=== PATIENT | female | born 1975 | race Caucasian/White ===

== ENCOUNTER 2021-01-24 11:47 | Outpatient (CLI) | payer OTHER, SELFPAY ==
[2021-01-24 12:41] LABS: Hematocrit 47.1 % (37.0-47.0); Mean Corpuscular Hemoglobin 33.5 pg (26-34); Mean Corpuscular Volume 98.7 fl (80-100); Mean Platelet Volume 10.4 fl (7.4-10.4); Platelet Count Result 203 k/mm3 (150-375); Red Blood Count 4.77 M/mm3 (4.2-5.4); White Blood Count 5.3 K/mm3 (4.5-10.0)
[2021-01-24 13:00] LABS: Alanine Aminotransferase 21 U/L (4-35); Albumin Level 4.4 g/dL (3.5-5.1); Alkaline Phosphatase 71 U/L (38-126); Anion Gap 5 mmol/L (8-16); Aspartate Amino Transferase 52 U/L (14-36); Bilirubin,Total 0.4 mg/dL (0.2-1.3); Blood Urea Nitrogen 6 mg/dL (7-17); CRP 1.4 mg/dL (<1.0); Calcium 9.3 mg/dL (8.4-10.2); Carbon Dioxide 27 mmol/L (22-30); Chloride 106 mmol/L (98-107); Estimated Glomerular Filt Rate > 60; Glucose 100 mg/dL (65-105); Potassium 3.6 mmol/L (3.4-5.0); Sodium 138 mmol/L (137-145)
[2021-01-24 13:36] LABS: Erythrocyte Sedimentation Rate 8 mm/hr (0-20)
== END 2021-01-24 11:48 | disposition home or self-care (01) ==
LOC: ANHLAB 11:49
PROVIDERS: PCP Family Medicine; Visit Provider Nurse Practitioner Family
DX: R19.7 Diarrhea, unspecified (principal)
CPT/HCPCS: 36415; 80053; 84443; 85027; 85652; 86140

== ENCOUNTER 2021-03-06 08:28 | Outpatient (CLI) | payer OTHER, SELFPAY ==
--- NOTE | ~2021-03-06 | MM_ITS ---
EXAMINATION: MM screening zak BI w ese HISTORY: Screening TECHNIQUE: Craniocaudal and mediolateral oblique 3-D tomosynthesis images were obtained and synthetic 2-D images were generated. CAD analysis was submitted and interpreted. COMPARISON: 02/06/2012 BREAST PARENCHYMAL COMPOSITION: The breasts are extremely dense, which lowers the sensitivity of mamm ography FINDINGS: There is no evidence of suspicious mass, calcification, or architectural distortion to sugg est malignancy in either breast. There has been no suspicious interval change. IMPRESSION: 1. No mammographic evidence of malignancy. 2. Recommend routine screening mammography in one year. BI-RADS Category 1: Negative Reviewed, dictated and finalized at location A.
== END 2021-03-06 08:29 | disposition home or self-care (01) ==
LOC: ANHIMG 08:30
PROVIDERS: PCP Family Medicine; Visit Provider Student in an Organized Health Care Education/Training Program
DX: Z12.31 Encounter for screening mammogram for malignant neoplasm of breast (principal)
CPT/HCPCS: 77063; 77067

== ENCOUNTER 2021-09-02 16:49 | Emergency (ER) | payer OTHER, SELFPAY ==
[2021-09-02 16:57] VITALS: BP 150/92; PULSE 110; RESP 18; TEMP 36.5; O2SAT 100
--- NOTE | 2021-09-02 18:54 | ED.URI ---
HPI - URI/Sore Throat General Chief Complaint: Upper Respiratory Infection Stated Complaint: Sinus,Sore Throat Time Seen by Provider: 09/02/21 18:42 Source: patient and RN notes reviewed Mode of arrival: ambulatory Limitations: no limitations History of Present Illness HPI Narrative: Patient presents today complaining of nasal congestion x2 days. Reports she had a sore throat yesterday that has since resolved. Denies fever or any additional symptoms. She has been taking Sudafed PE with some mild relief. Denies any history of chronic sinusitis or sinus surgeries. She has been vaccinated against COVID-19. MD elicited complaint: nasal congestion and sinus pain Related Data Home Medications Medication Instructions Recorded Confirmed atorvastatin 09/02/21 losartan-hydrochlorothiazide tablet 09/02/21 Allergies Allergy/AdvReac Type Severity Reaction Status Date / Time No Known Allergies Allergy Unknown Verified 01/24/21 11:19 Review of Systems Review of Systems: CONSTITUTIONAL: Denies body aches, fever, chills, or sweats. EYES: Denies visual changes, redness, or discharge. ENT: Denies sore throat, or otalgia.+ Congestion, sinus pressure, rhinorrhea CARDIOVASCULAR: Denies chest pain, palpitations, or edema. RESPIRATORY: Denies cough or dyspnea. GASTROINTESTINAL: Denies abdominal pain, nausea, vomiting, or diarrhea. GENITOURINARY: Denies dysuria or hematuria. SKIN: Denies rash, itching, or wounds. MUSCULOSKELETAL: Denies back pain, joint pain, or myalgia. NEUROLOGIC: Denies headache, numbness, tingling, or weakness. PSYCH: Denies depression or anxiety. [facility] Past Medical History Medical History Brain aneurysm History of miscarriage Twins History of stroke History of vaginal delivery Lung collapse History x 3 Surgical History Surgical History History of appendectomy 1998 History of right salpingo-oophorectomy Family History Family History Father Lung cancer Mother Heart disease Social History Social History Smoking status: Current every day smoker Alcohol intake: current Substance use: never Gender identity (if verbalized by the patient): Female Comments At time of signature, I have reviewed and agree with nursing past medical, surgical, social and family history unless otherwise noted. Please see nursing chart for further information. There is no relevant family history pertinent to the presenting complaint Exam Narrative: GENERAL: Well-appearing, well-nourished, and in no acute distress. HEAD: Normocephalic, atraumatic. EYES: EOMI. No redness or drainage. Conjunctivae normal. ENT: Mucous membranes pink and moist. Nares congested. Bilateral swollen nasal turbinates with clear drainage no rhinorrhea. TMs normal bilaterally. Throat normal with small ulceration at the right palatine arch. Uvula midline. NECK: Normal AROM. Supple. No lymphadenopathy. CHEST: No respiratory distress. Clear to auscultation. HEART: Regular rate and rhythm. No murmur appreciated. Normal peripheral pulses. EXTREMITIES: Normal range of motion. No edema. SKIN: Warm, dry, no rash. Capillary refill normal. Normal skin turgor. NEURO: No focal deficits. Alert and oriented x3. Gait steady. PSYCH: Normal affect. No signs of depression or anxiety. Course Vital Signs Vital signs: Vital Signs Temperature 97.7 F 09/02/21 16:57 Pulse Rate 110 H 09/02/21 16:57 Respiratory Rate 18 09/02/21 16:57 Blood Pressure 150/92 H 09/02/21 16:57 Pulse Oximetry 100 09/02/21 16:57 Temperature 97.7 F 09/02/21 16:57 Pulse Rate 110 H 09/02/21 16:57 Respiratory Rate 18 09/02/21 16:57 Blood Pressure 150/92 H 09/02/21 16:57 Pulse Oximetry 100 09/02/21 16:5
== END 2021-09-02 19:03 | disposition home or self-care (01) ==
PROVIDERS: Emergency Provider Nurse Practitioner
DX: J32.9 Chronic sinusitis, unspecified (principal); Z86.73 Personal history of transient ischemic attack (TIA), and cerebral infarction without residual deficits; F17.200 Nicotine dependence, unspecified, uncomplicated
CPT/HCPCS: 99213; G0463

== ENCOUNTER 2021-09-18 08:44 | Outpatient (CLI) | payer OTHER, SELFPAY ==
--- NOTE | ~2021-09-18 | XR_ITS ---
EXAMINATION: XR chest 2V DATE: 09/18/2021 09:04 INDICATION: Viral upper respiratory infection. TECHNIQUE: Frontal and lateral views of the chest were obtained. COMPARISON: Chest 2 views 07/31/2009 FINDINGS: There is chronic scarring at the lung apices. No pleural effusion or pneumothorax. The hear t size is normal. IMPRESSION: 1. Chronic scarring at the lung apices. Reviewed, dictated and finalized at location A. WORKER
== END 2021-09-18 08:45 | disposition home or self-care (01) ==
DX: J06.9 Acute upper respiratory infection, unspecified (principal); R91.8 Other nonspecific abnormal finding of lung field
CPT/HCPCS: 36415; 71046; 86413

== ENCOUNTER 2021-09-18 12:58 | Outpatient (CLI) | payer OTHER, SELFPAY | END 2021-09-18 12:59 | disposition home or self-care (01) | LOC: ANHLAB 13:10 | DX: R05.3 Chronic cough (principal); Z20.822 Contact with and (suspected) exposure to COVID-19 | CPT/HCPCS: 36415; 86413 ==

== ENCOUNTER 2021-10-21 12:40 | Outpatient (CLI) | payer OTHER, SELFPAY ==
--- NOTE | 2021-10-21 15:54 | WPDPFTINT ---
PFT Procedure Performed PFT Procedure Performed Plethysmography (Lung Vol) Diffusing Cap (DLCO) Flow Vol Loop Spirometry w/o Bronchodil PFT Interpretation This is a pulmonary function test with spirometry, plethysmography and diffusing capacity. The test was performed and results interpreted in accordance with the 2019 and 2005 ATS/ERS Task Force guidelines respectively using the Global Lung Function Initiative-2012 reference equations. Patient demonstrated good effort and cooperation. Reproducibility criteria were met. The quality of the spirometry maneuver was Grade A. Findings: Spirometry: there is decreased maximal expiratory airflow at all lung volumes with concave expiratory flow tracing. The per FVC is 3.43 L, 83% predicted. The FEV1 is 2.01 L, 61% predicted. The FEV1: FVC ratio is 59%. Plethysmography: The total lung capacity is 6.58 L, 116% predicted. The functional residual capacity is 4.47 L, 140% predicted. The residual volume is 3.00, 158% predicted. Diffusing capacity: The absolute diffusion capacity is 18.4, 74% predicted. The diffusing capacity corrected for alveolar volume is 3.59, 80% predicted. Impression: There is a moderate obstructive abnormality. The increase in residual volume is consistent with air trapping from an obstructive abnormality. Hyperinflation is present is demonstrated by the increase in functional residual capacity and is consistent with an obstructive abnormality. The diffusing capacity is normal. There are no prior studies for comparison
== END 2021-10-21 12:41 | disposition home or self-care (01) ==
LOC: ANHPFT 12:42
DX: R05.3 Chronic cough (principal); R94.2 Abnormal results of pulmonary function studies
CPT/HCPCS: 94375; 94726; 94729

== ENCOUNTER 2021-12-18 07:08 | Outpatient (CLI) | payer OTHER, SELFPAY ==
--- NOTE | ~2021-12-18 | CT_ITS ---
EXAMINATION:CT chest high resolution wo sd DATE: 12/18/2021 07:28 INDICATION: Interstitial lung disease. Cough. TECHNIQUE: Computed tomography (CT) of the chest was performed without intravenous contrast. Automate d exposure control and iterative reconstruction technique were employed. The dose-length product (DLP ) was 143.28 mGy-cm. COMPARISON: Chest 2 views 09/18/2021 FINDINGS: There is mild emphysema. There is symmetric scarring at the lung apices. Calcified right shaila ng nodules and calcified right hilar and mediastinal lymph nodes are consistent with old granulomatou s disease. There is a 3 mm nodule in left lower lobe, likely benign. There are calcified pleural plaq ues in left hemithorax. There is a staple line in left lung upper lobe. No pleural effusion. The hear t size is normal. No pericardial effusion. There is mild thoracic spondylosis. IMPRESSION: 1. Mild emphysema. 2. Scarring at the lung apices. Reviewed, dictated and finalized at location A.
== END 2021-12-18 07:09 | disposition home or self-care (01) ==
LOC: ANHIMG 07:13
PROVIDERS: PCP Physician Assistant; Visit Provider Physician Assistant
DX: J84.9 Interstitial pulmonary disease, unspecified (principal); J43.9 Emphysema, unspecified; R91.8 Other nonspecific abnormal finding of lung field
CPT/HCPCS: 71250

== ENCOUNTER 2022-02-12 09:49 | Outpatient (CLI) | payer OTHER, SELFPAY ==
--- NOTE | ~2022-02-12 | XR_ITS ---
EXAMINATION: XR foot RT min 3V DATE: 02/12/2022 10:10 INDICATION: Right foot pain TECHNIQUE: Dorsoplantar, lateral, and 2 oblique views of the right foot were obtained. COMPARISON: None. FINDINGS: Bone alignment is normal. There is no fracture. There is mild osteoarthritis of the first m etatarsophalangeal joint. The soft tissues are normal. IMPRESSION: 1. No acute osseous abnormality. Reviewed, dictated and finalized at location A.
== END 2022-02-12 09:50 | disposition home or self-care (01) ==
PROVIDERS: PCP Physician Assistant; Visit Provider Physician Assistant
DX: M79.671 Pain in right foot (principal)
CPT/HCPCS: 73630

== ENCOUNTER 2022-03-07 09:08 | Outpatient (CLI) | payer OTHER, SELFPAY ==
--- NOTE | ~2022-03-07 | MM_ITS ---
EXAMINATION: MM screening zak BI w ese HISTORY: Screening mammogram TECHNIQUE: Craniocaudal and mediolateral oblique 3-D tomosynthesis images were obtained and synthetic 2-D images were generated. Bilateral rotated lateral CC views. CAD analysis was submitted and interp reted. COMPARISON: 03/06/2021 bilateral screening mammogram 02/06/2012 bilateral diagnostic mammography and right breast ultrasound examination BREAST PARENCHYMAL COMPOSITION: The breasts are extremely dense, which lowers the sensitivity of mamm ography. FINDINGS: Minimal benign calcification. There is no evidence of suspicious mass, calcification, or ar chitectural distortion to suggest malignancy in either breast. There has been no suspicious interval change. IMPRESSION: 1. No mammographic evidence of malignancy. 2. Recommend routine screening mammography in one year. BI-RADS Category 2: Benign finding(s). Reviewed, dictated and finalized at location A.
== END 2022-03-07 09:09 | disposition home or self-care (01) ==
LOC: ANHIMG 09:08
PROVIDERS: PCP Physician Assistant; Visit Provider Student in an Organized Health Care Education/Training Program
DX: Z12.31 Encounter for screening mammogram for malignant neoplasm of breast (principal)
CPT/HCPCS: 77063; 77067

== ENCOUNTER 2022-03-16 11:30 | Emergency (ER) | payer OTHER, SELFPAY ==
--- NOTE | ~2022-03-16 | XR_ITS ---
XR hand RT min 3V 03/16/2022 12:02 Indication: Status post fall. Right hand pain and swelling Procedure: 3 views right hand Comparison: No prior studies for comparison. Findings: There is an extra-articular fracture proximal aspect of the fifth proximal phalanx without significant displacement or angulation. There is a possible nondisplaced fracture base of the metacar pals seen on lateral view only, possibly third metacarpal. Mild soft tissue swelling dorsally. No for eign bodies. Impression: 1: Nondisplaced extra-articular fracture proximal aspect of the right fifth proximal phalanx. 2: Possible nondisplaced fracture base of the metacarpals seen on lateral view only, possibly third metacarpal fracture. Reviewed, dictated and finalized at location A. Impression: 1: Nondisplaced extra-articular fracture proximal aspect of the right fifth pro ximal phalanx. 2: Possible nondisplaced fracture base of the metacarpals seen on lateral view only, possibly third metacarpal fracture.
[2022-03-16 11:33] VITALS: BP 161/93; PULSE 88; RESP 16; TEMP 36.2; O2SAT 100
[2022-03-16] MEDS: HYDROcodone/acetaminophen (*CRX) 5-325 MG TABLET 1 TAB PO (12:22)
[2022-03-16 13:18] VITALS: BP 181/105; PULSE 78; RESP 18; O2SAT 100
--- NOTE | 2022-03-16 15:24 | ED.UPPEXIN ---
HPI - Extremity Injury (Upper) General Chief Complaint: Extremity Injury, Upper Stated Complaint: Right hand Injury Time Seen by Provider: 03/16/22 11:46 History of Present Illness HPI narrative: Patient is a 46-year-old right-handed female here for evaluation of right hand pain after a fall yesterday. Patient states that she was walking when she accidentally tripped and fell onto an outstretched right hand. She denies head injury or loss of consciousness in the fall. Since then she has developed right hand pain and swelling. She has been taking ibuprofen without much relief. Patient has been able to move her fingers and denies any numbness or tingling in her digits. No further injury sustained in the incident, no break in skin integrity. Related Data Home Medications Medication Instructions Recorded Confirmed atorvastatin 20 mg tablet 09/02/21 01/07/22 losartan 50 mg-hydrochlorothiazide tablet 09/02/21 01/07/22 12.5 mg tablet Allergies Allergy/AdvReac Type Severity Reaction Status Date / Time No Known Allergies Allergy Unknown Verified 03/16/22 11:40 Review of Systems Review of Systems: Gen.: Denies fevers or chills Eyes: Denies eye pain or visual change ENT: Denies congestion Respiratory: Denies shortness of breath or cough CV: Denies chest pain or palpitations GI: Denies abdominal pain nausea, emesis or diarrhea denies burning, urgency, frequency or hematuria Musculoskeletal: Reports right hand pain Neuro: Denies numbness, tingling, weakness or focal weakness Skin: Denies rash Except as documented, all other systems reviewed and negative [facility] Past Medical History Medical History Brain aneurysm History of miscarriage Twins History of stroke History of vaginal delivery Lung collapse History x 3 Surgical History Surgical History History of appendectomy 1998 History of right salpingo-oophorectomy Family History Family History Father Lung cancer Mother Heart disease Social History Social History Smoking status: Current every day smoker Alcohol intake: current Substance use: never Gender identity (if verbalized by the patient): Female Exam Narrative: Gen: Alert, no distress Eyes: EOMI, no icterus Pulm: Respirations even and unlabored, symmetric thorax expansion, no audible stridor or visible cyanosis CV: Brisk capillary refill. 2+ radial pulses bilaterally. GI: No distension, no voluntary/involuntary guarding MSK: Posterior aspect of right hand over the carpal bones is diffusely swollen and tender to palpation. Tender to palpation over base of third metacarpal. Patient has full range of motion of her fingers. Brisk capillary refill. Neuro: AOx4, moves all extremities without apparent difficulty or weakness, follows commands Skin: No jaundice, no visible bruising, rashes, lesions or wounds on exposed skin Psych: Normal mood/affect, insight/judgement good, adequate fund of knowledge, recent/remote memory intact Course Vital Signs Vital signs: Vital Signs Temperature 97.1 F L 03/16/22 11:33 Pulse Rate 88 03/16/22 11:33 Respiratory Rate 16 03/16/22 11:33 Blood Pressure 161/93 H 03/16/22 11:33 Pulse Oximetry 100 03/16/22 11:33 Oxygen Delivery Room Air 03/16/22 11:33 Temperature 97.1 F L 03/16/22 11:33 Pulse Rate 78 03/16/22 13:18 Respiratory Rate 18 03/16/22 13:18 Blood Pressure 181/105 H 03/16/22 13:18 Pulse Oximetry 100 03/16/22 13:18 Oxygen Delivery Room Air 03/16/22 11:33 MDM - Extremity Injury (Upper) MDM Narrative Medical decision making narrative: 46-year-old female here for evaluation of right hand pain after FOOSH yesterday, hand x-ray with evidence of fracture of the right fifth pro
== END 2022-03-16 13:20 | disposition home or self-care (01) ==
PROVIDERS: Emergency Provider General Practice; PCP Physician Assistant
DX: S62.646A Nondisplaced fracture of proximal phalanx of right little finger, initial encounter for closed fracture (principal); Z86.73 Personal history of transient ischemic attack (TIA), and cerebral infarction without residual deficits; F17.200 Nicotine dependence, unspecified, uncomplicated; W01.0XXA Fall on same level from slipping, tripping and stumbling without subsequent striking against object, initial encounter
CPT/HCPCS: 29125; 73130; 99284; A9270

== ENCOUNTER 2022-05-29 10:30 | Outpatient (RCR) | payer OTHER, SELFPAY ==
--- NOTE | 2022-04-14 10:21 | OTOPEVAL ---
OCCUPATIONAL THERAPY INITIAL EVALUATION REPORT 04/14/22 Patient presents to outpatient OT 4 weeks s/p right 5th proximal phalanx fracture that was treated conservatively. She has been nury taping and completing active flexion/extension of the fingers regularly. Stiffness noted today with active PIP extension and difficulty with lumbrical activation. She was issued an active ROM HEP to fine tune her ROM deficits. Continued skilled OT indicated to progress to strengthening at 6 weeks post injury. Thank you for referring Diane Mccormick to [facility].? The patient is scheduled to be seen for therapy? 0-1x/week for 4 weeks. Please review, sign, date and return this plan of care MARIBEL. I agree with and certify that the following plan of care is medically necessary. Referring Physician Date Referring Provider: George Winn MD *OT Outpatient Evaluation Start: 04/14/22 09:26 Outpatient Past Medical History Source of Past Medical History Recalled from Previous Visit, Confirmed with Patient/Family Respiratory History Hx Other Respiratory Disorders Yes: hx of collapsed lung and surgery to repair Reproductive History Hx Post Menopausal Yes Evaluation Information Problem Diagnosis Stiffness and pain right hand Additional Evaluation Detail healing nondisplaced fx of right 5th proximal phalanx Subjective Information Initial injury: 03/16 when she Query Text:As Reported By Patient/ fell and hit her hand against Family some rocks. Did not require surgery. She was splinted/ immobilized for a few weeks, then she has had digits 4 and 5 on the right hand nury taped for a few weeks. Functionally she states she has adapted the way she does housework/lifting, favoring the left hand. Quickdash: 47.7% Prior Level of Function Activity Level (Last 3 Months) Occupation Stay at home mom Hand Dominance Right Activity of Daily Living Ability Independent Cooking Yes Cleaning Yes Laundry Yes Shopping Yes Driving Yes Pain Assessment Timing of Pain Assessment Timing of Pain Assessment Assessment Pain Scale Pain Scale Used Numeric (1 - 10) Self Report Pain Assessment Right Hand(s) Reported Pain Level 0 Lowest Pain Intensity 0 Greatest Pain Intensity 5 Pain Aggravating Factors Lifting Other Pain Aggravating Factors Carrying a laundry basket/ lifting heavy Pain Score Pain Score
--- NOTE | 2022-04-15 17:01 | PCOTNOTE ---
Patient called today stating that the ROM exercises are causing her pain. She reports the pain is at the base of the thumb. The recent x-ray report states, Possible nondisplaced fracture base of the metacarpals seen on lateral view only, possibly third metacarpal fracture. It appears that another hand x-ray to better view this area is indicated. Will have the patient stop the HEP at this time and will contact Dr. Winn with this information.
--- NOTE | 2022-05-12 09:54 | OTOPEVAL ---
OCCUPATIONAL THERAPY RE-EVALUATION AND POC UPDATE 05/12/22 Patient presents for OT re-evaluation 8 weeks s/p right 5th proximal phalanx fracture that was treated conservatively. ROM has returned to functional limits (only 5 degree extension lag at the small finger PIP joint). She has been progressed to strengthening and has done well with this. She brings new orders today with dx of 1st dorsal compartment syndrome as well as a positive Myrtle's test. Will continue to see patient 1x/week for an additional 3-4 weeks for pain/inflammation reduction via manual therapy, exercise, and modalities. Thank you for referring Diane Mccormick to [facility].? The patient is scheduled to be seen for therapy? 1x/week for 3-4 weeks. Please review, sign, date and return this plan of care MARIBEL. I agree with and certify that the following plan of care is medically necessary. Referring Physician Date Referring Provider: George Winn MD Re-Evaluation Information Problem Diagnosis Stiffness and pain right hand Additional Evaluation Detail healing nondisplaced fx of right 5th proximal phalanx Subjective Information Initial injury: 03/16 when she Query Text:As Reported By Patient/ fell and hit her hand against Family some rocks. Did not require surgery. She was splinted/ immobilized for a few weeks, then she has had digits 4 and 5 on the right hand nury taped for a few weeks. She is now completing gentle strengthening with putty. Functionally she states she has made progress with being able to use her right hand for more ADL tasks, such as lifting/carrying, using a knife, dishes, etc. Continues to have some difficulty with opening a jar. Presents today with a new order to begin to treat 1st dorsal compartment pain. Quickdash 04/14/22: 47.7% Quickdash 05/12/22: 27.3% Pain Assessment Timing of Pain Assessment Timing of Pain Assessment Re-assessment Pain Scale Pain Scale Used Numeric (1 - 10) Self Report Pain Assessment Right Wrist(s) Reported Pain Level 3 Pain Description Aching Right Hand(s) Reported Pain Level 1 Pain Description Soreness Pain Score Pain Score 1,3: Self Report Additional Pain Score Comments Pain @ first dorsal compartment. Interventions Used Interventions Used By Clinicians Education,Manual Therapy
--- NOTE | 2022-05-29 10:52 | OTOPEVAL ---
OCCUPATIONAL THERAPY RE-EVALUATION AND DISCHARGE SUMMARY 05/29/22 Patient presents for OT re-evaluation 10 weeks s/p right 5th proximal phalanx fracture that was treated conservatively. ROM has returned to normal limits. 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 The past 2 weeks have focused on treatment of 1st dorsal compartment tenosynovitis. She has been very compliant with HEP and no longer is reporting pain here. She is ready for discharge. No further skilled services indicated at this time. Thank you for referring Diane Mccormick to [facility]. Please review, sign, date and return this D/C Note MARIBEL. I agree with and certify that the following plan of care is medically necessary. Referring Physician Date Referring Provider: George Winn MD Re-Evaluation Information Problem Diagnosis Stiffness and pain right hand Subjective Information Patient reports no functional Query Text:As Reported By Patient/ limitations at this time. She Family states her strength in her hand has been having no pain. She has been also treated for de Quervain's tenosynovitis and this has also subsided. Reporting no pain here also. Quickdash 04/14/22: 47.7% Quickdash 05/12/22: 27.3% Quickdash 05/29/22: 4.5% Pain Assessment Timing of Pain Assessment Timing of Pain Assessment Assessment Pain Scale Pain Scale Used Numeric (1 - 10) Self Report Pain Assessment Right Wrist(s) Reported Pain Level 0 Lowest Pain Intensity 0 Greatest Pain Intensity 0 Right Hand(s) Reported Pain Level 0 Lowest Pain Intensity 0 Greatest Pain Intensity 0 Pain Score Pain Score 0,0: Self Report Interventions Used Interventions Used By Clinicians Education,Exercise,Ice, Paraffin Upper Extremity Range of Motion Finger Range of Motion Right Reason Not Measured WNL/Right Finger Range of Motion Comments (R) hand active ROM has returned to normal limits. Thumb Range of Motion Right Reason Not Measured WNL/Right Hand Finance Mgr/Pinch Strength Assessment Hand Left Finance Mgr Strength (lbs) 63 Hand Finance Mgr/Pinch Strength Comments Norm: 50 lbs. Right Finance Mgr Strength (lbs) 55 Hand Finance Mgr/Pinch Strength Comments Norm: 55 lbs. Special Tests-Upper Extremity Wrist Special Tests Myrtle's Negative Right Wrist/Hand Special Tests Comment No longer having pain with Myrtle's. OT Clinical Summary OT Clinical Summary Patient presents for OT re- evaluation 10 weeks s/p right 5th proximal phalanx fracture that was treated
== END 2022-05-29 13:20 | disposition home or self-care (01) ==
LOC: ANHOT 10:30
PROVIDERS: PCP Physician Assistant; Visit Provider Plastic Surgery
DX: S62.646D Nondisplaced fracture of proximal phalanx of right little finger, subsequent encounter for fracture with routine healing (principal); M25.641 Stiffness of right hand, not elsewhere classified; M79.641 Pain in right hand
CPT/HCPCS: 97018; 97110; 97140; 97165

== ENCOUNTER 2022-09-01 13:07 | Outpatient (CLI) | payer OTHER, SELFPAY ==
--- NOTE | ~2022-09-01 | XR_ITS ---
XR chest 2V 09/01/2022 13:24 Indication: Chronic cough. COPD. Procedure: 2 view chest Comparison: Comparison to multiple prior studies sequentially, with oldest reviewed study dated 07/06. Findings: There is chronic scarring of the left upper lobe. There is chronic apical pleural thickenin g/scarring bilaterally. Heart size normal. The lungs are hyperinflated which is consistent with, but not diagnostic of chronic obstructive pulmonary disease. No acute osseous abnormality. Impression: 1: No acute cardiopulmonary disease. 2: Chronic biapical pleural-parenchymal scarring. Reviewed, dictated and finalized at location A. ITAL SUPERINTENDENT Impression: 1: No acute cardiopulmonary disease. 2: Chronic biapical pleural-parenchymal scarring.
== END 2022-09-01 13:08 | disposition home or self-care (01) ==
LOC: ANHIMG 13:11
PROVIDERS: PCP Physician Assistant; Visit Provider Physician Assistant
DX: R05.3 Chronic cough (principal); R91.8 Other nonspecific abnormal finding of lung field
CPT/HCPCS: 71046

== ENCOUNTER 2023-03-09 10:11 | Outpatient (CLI) | payer OTHER, SELFPAY ==
--- NOTE | ~2023-03-09 | XR_ITS ---
Left foot Technique: AP, oblique, and lateral views were obtained. Clinical History: Fifth metatarsal pain Findings: No acute fracture or dislocation is seen. Osseous alignment is anatomic. Joint spaces are p reserved without erosive or degenerative change. Soft tissues are unremarkable. Impression: Unremarkable left foot radiographs. Reviewed, dictated and finalized at location . Impression: Unremarkable left foot radiographs.
== END 2023-03-09 10:12 | disposition home or self-care (01) ==
LOC: ANHIMG 10:14
PROVIDERS: PCP Physician Assistant; Visit Provider Physician Assistant
DX: M79.672 Pain in left foot (principal)
CPT/HCPCS: 73630